=== PATIENT | female | born 1955 | race African-American/Black ===

== ENCOUNTER → 2017-02-05 | Outpatient (CLI) | payer OTHER ==
[~2017-02-05] MED LIST: ALBUTEROL1.25 MG/3 IH; CALCIUM 500 + D1 TA1 PO; FOLIC ACID1 MG PO; HCTZ 25MG TAB25 MG PO; KLOR-CON M2020 MEQ PO; LISINOPRIL10 MG PO; LORTAB 5/500 501 TAB PO; LORTAB 7.5/5001 TAB PO; MICRO-K 1010 MEQ PO; MULTIPLE VITAMI1 CAP PO; NEXIUM40 MG PO; NORCO 325 MG-51 TAB PO; PRAVACHOL 40MG40 MG PO; PREDNISONE20 MG PO; PRENATAL1 TA2 PO; PRENATAL1 TA6 PO; PRO AIR; PROAIR HFA0.09 MG/AC IH; PROBIOTIC FORMU1 CAP PO; PROVENTIL0.09 MG/A1 IH; REGLAN 10MG10 MG/TAB PO; TUSS PO; UNABLE; VERAPAMIL HCL240 M1 PO; WOMEN'S DAILY F1 TAB PO; ZITHROMAX Z PA250 MG PO; ZOCOR10 MG PO; ZOFRAN ODT4 MG PO
== END ==
LOC: MC.RAD 01-22 14:00
DX: Z12.31 Encounter for screening mammogram for malignant neoplasm of breast (principal); R92.1 Mammographic calcification found on diagnostic imaging of breast; N63 Unspecified lump in breast

== ENCOUNTER → 2017-02-09 | Outpatient (CLI) | payer OTHER | LOC: MC.RAD 08:20 | DX: N60.01 Solitary cyst of right breast (principal) ==

== ENCOUNTER → 2017-03-03 | Outpatient (CLI) | payer OTHER | LOC: COL.RAD 10:09 | DX: M17.11 Unilateral primary osteoarthritis, right knee (principal); M25.761 Osteophyte, right knee; S83.241A Other tear of medial meniscus, current injury, right knee, initial encounter; S83.281A Other tear of lateral meniscus, current injury, right knee, initial encounter ==

== ENCOUNTER → 2017-04-14 | Outpatient (CLI) | payer OTHER | LOC: COL.VAS 14:28 | DX: M79.661 Pain in right lower leg (principal); Z96.641 Presence of right artificial hip joint ==

== ENCOUNTER 2017-08-28 11:44 | Emergency (ER) | payer OTHER ==
[~2017-08-28] VITALS: Ht 175.3 cm; Wt 80.0 kg
[2017-08-28 11:50] VITALS: TEMP 98.5
[2017-08-28] MEDS ORDERED: ZITHROMAX 250M250 MG PO (13:17)
[2017-08-28] MEDS ORDERED: PREDNISONE20 MG PO (13:17)
[2017-08-28 13:33] VITALS: BP 135/89; PULSE 84
== END 2017-08-28 13:35 | disposition home or self-care (01) ==
LOC: COL.ER 11:44
DX: R06.02 Shortness of breath (principal)
CPT/HCPCS: J7512

== ENCOUNTER → 2018-04-19 | Outpatient (CLI) | payer MEDICARE, OTHER ==
[~2018-04-19] MED LIST changes: +ZITHROMAX 250M250 MG PO
== END ==
LOC: MC.RAD 03-15 09:20
DX: Z12.31 Encounter for screening mammogram for malignant neoplasm of breast (principal)

== ENCOUNTER → 2018-10-14 | Outpatient (CLI) | payer MEDICARE, OTHER | LOC: MC.RAD 09:25 | DX: N63.10 Unspecified lump in the right breast, unspecified quadrant (principal) | CPT/HCPCS: G0279 ==

== ENCOUNTER → 2019-08-21 | Outpatient (CLI) | payer MEDICARE, OTHER ==
[~2019-08-21] VITALS: Ht 175.3 cm; Wt 84.5 kg
[~2019-08-21] MED LIST changes: +B-121000 MCG PO; +LIPITOR20 MG PO; +NATURAL IRON65 MG PO; +NORVASC 5MG5 MG/TAB PO; +PRIL40 PO
[2019-08-21 10:18] VITALS: BP 121/78; PULSE 114
[2019-08-21 10:56] VITALS: BP 146/89; PULSE 99
== END ==
LOC: COL.RAD 09:30
DX: M47.27 Other spondylosis with radiculopathy, lumbosacral region (principal); M43.10 Spondylolisthesis, site unspecified
CPT/HCPCS: J3301

== ENCOUNTER → 2019-11-13 | Outpatient (CLI) | payer MEDICARE, OTHER ==
[~2019-11-13] VITALS: Ht 175.3 cm; Wt 83.7 kg
[~2019-11-13] MED LIST changes: +MOTRIN 400400 MG/TAB PO
[2019-11-13 12:35] VITALS: BP 170/87; PULSE 82
[2019-11-13 13:00] VITALS: BP 178/96; PULSE 90
== END ==
LOC: COL.RAD 11-03 12:00
DX: M47.817 Spondylosis without myelopathy or radiculopathy, lumbosacral region (principal)
CPT/HCPCS: J3301

== ENCOUNTER → 2020-07-29 | Outpatient (CLI) | payer MEDICARE, OTHER | LOC: COL.RAD 07:24 | DX: K21.9 Gastro-esophageal reflux disease without esophagitis (principal) ==

== ENCOUNTER → 2020-11-01 | Outpatient (CLI) | payer MEDICARE, OTHER | LOC: COL.RAD 10:50 | DX: J43.9 Emphysema, unspecified (principal); N28.1 Cyst of kidney, acquired; M47.816 Spondylosis without myelopathy or radiculopathy, lumbar region; R59.0 Localized enlarged lymph nodes; R63.4 Abnormal weight loss ==

== ENCOUNTER → 2021-06-03 | Outpatient (CLI) | payer MEDICARE, OTHER ==
[~2021-06-03] VITALS: Ht 175.3 cm; Wt 76.1 kg
[~2021-06-03] MED LIST changes: +CLARITIN 1010 MG/TAB PO; +MULTIPLE VITAMI1 TA1 PO
[2021-06-03 09:04] VITALS: BP 145/81; PULSE 91
--- NOTE | 2021-06-03 09:12 | NUR ---
pt here, consent signed.
[2021-06-03 10:07] VITALS: BP 153/87; PULSE 84
== END ==
LOC: COL.RAD 08:45
DX: M43.16 Spondylolisthesis, lumbar region (principal); M48.061 Spinal stenosis, lumbar region without neurogenic claudication
CPT/HCPCS: J3301

== ENCOUNTER → 2021-11-11 | Outpatient (CLI) | payer MEDICARE, OTHER | LOC: MHCPAIN 08:48 | DX: M47.817 Spondylosis without myelopathy or radiculopathy, lumbosacral region (principal); M53.3 Sacrococcygeal disorders, not elsewhere classified; M54.50 Low back pain, unspecified | CPT/HCPCS: G0463 ==

== ENCOUNTER → 2021-11-17 | Outpatient (CLI) | payer MEDICARE, OTHER | LOC: MHCPAIN 08:33 | DX: M53.3 Sacrococcygeal disorders, not elsewhere classified (principal); M47.817 Spondylosis without myelopathy or radiculopathy, lumbosacral region | CPT/HCPCS: G0260; J1040; Q9967 ==

== ENCOUNTER → 2021-12-11 | Outpatient (CLI) | payer MEDICARE, OTHER | LOC: MHCPAIN 09:50 | DX: M47.817 Spondylosis without myelopathy or radiculopathy, lumbosacral region (principal); M54.50 Low back pain, unspecified; M53.3 Sacrococcygeal disorders, not elsewhere classified ==

== ENCOUNTER → 2022-01-08 | Outpatient (CLI) | payer MEDICARE, OTHER | LOC: MHCPAIN 08:26 | DX: M47.817 Spondylosis without myelopathy or radiculopathy, lumbosacral region (principal); M54.50 Low back pain, unspecified; M53.3 Sacrococcygeal disorders, not elsewhere classified | CPT/HCPCS: G0463 ==

== ENCOUNTER → 2022-01-29 | Outpatient (CLI) | payer MEDICARE, OTHER | LOC: MHCPAIN 07:23 | DX: M47.817 Spondylosis without myelopathy or radiculopathy, lumbosacral region (principal); M54.50 Low back pain, unspecified; M53.3 Sacrococcygeal disorders, not elsewhere classified | CPT/HCPCS: G0463; J1100; J2250; J3010 ==

== ENCOUNTER → 2022-03-12 | Outpatient (CLI) | payer MEDICARE, OTHER | LOC: MC.RAD 08:38 | DX: Z12.31 Encounter for screening mammogram for malignant neoplasm of breast (principal) ==

== ENCOUNTER → 2022-03-25 | Outpatient (CLI) | payer MEDICARE, OTHER | LOC: MHCPAIN 07:38 | DX: M47.817 Spondylosis without myelopathy or radiculopathy, lumbosacral region (principal); M41.26 Other idiopathic scoliosis, lumbar region; M54.50 Low back pain, unspecified; M53.3 Sacrococcygeal disorders, not elsewhere classified | CPT/HCPCS: G0463 ==

== ENCOUNTER → 2022-12-08 | Outpatient (CLI) | payer MEDICARE, OTHER | LOC: MHCPAIN 10:59 | DX: M47.817 Spondylosis without myelopathy or radiculopathy, lumbosacral region (principal); M54.50 Low back pain, unspecified; M53.3 Sacrococcygeal disorders, not elsewhere classified; I10 Essential (primary) hypertension; E78.5 Hyperlipidemia, unspecified | CPT/HCPCS: G0463 ==

== ENCOUNTER 2024-05-19 10:44 | Emergency (ER) | payer MEDICARE ==
[~2024-05-19] VITALS: Ht 175.3 cm; Wt 72.7 kg
[2024-05-19 10:50] VITALS: TEMP 98.2
[2024-05-19] MEDS ORDERED: NS 1,000 ML IV ONE ×2 (11:45→12:00)
[2024-05-19 12:03] LABS: BASO # 0.1 K/mm3 (0.0-0.2); BASO % 0.7 % (0.0-2.0); EOS # 0.1 K/mm3 (0.0-0.7); EOS % 0.7 % (0.0-4.0); GRAN % 57.6 % (42.2-75.2); HEMATOCRIT 37.8 % (37.0-47.0); HEMOGLOBIN 12.6 g/dl (12.5-16.0); LYMPH # 2.3 K/mm3 (1.2-3.4); LYMPH % 34.1 % (20.0-51.0); MEAN CELL VOLUME 104 fl (80.0-100.0); MEAN CORPUSCULAR HEMOGLOBIN 35 pg (27-31); MEAN CORPUSCULAR HGB CONC 33 g/dl (33.0-37.0); MEAN PLATELET VOLUME 11.1 fl (7.4-10.4); MONO # 0.5 K/mm3 (0.1-0.6); MONO % 6.8 % (1.7-9.3); PLATELET COUNT 302 K/mm3 (130-400); RED BLOOD COUNT 3.62 M/mm3 (4.10-5.30); REDCELL DISTRIBUTION WIDTH-CV 12.1 % (11.5-14.5)
[2024-05-19 12:22] LABS: ALANINE AMINOTRANSFERASE 14 U/L (0-55); ALBUMIN 4.2 g/dL (3.4-4.8); ALKALINE PHOSPHATASE 87 U/L (40-150); ANION GAP 17 mmol/L (7-16); AST,SGOT 24 U/L (5-34); BILIRUBIN,TOTAL 0.4 mg/dL (0.2-1.2); BLOOD UREA NITROGEN 8 mg/dL (10-20); CALCIUM 9.9 mg/dL (8.4-10.2); CHLORIDE 103 mEq/L (98-107); CREATININE, serum 0.94 mg/dL (0.57-1.11); GLUCOSE 101 mg/dL (70-99); POTASSIUM 3.7 mEq/L (3.5-4.5); SODIUM 142 mEq/L (136-145); TOTAL PROTEIN 8.4 g/dl (6.2-8.1)
[2024-05-19 12:26] VITALS: BP 146/74
[2024-05-19 12:36] LABS: TROPONIN-I < 0.010 ng/mL (0.00-0.033)
[2024-05-19] MEDS ORDERED: NS 100 ML IV SCH (13:05)
[2024-05-19] MEDS ORDERED: Iohexol 300 - 100 ML VIAL IV ONE (13:06)
[2024-05-19] MEDS ORDERED: NORCO 325 MG-51 TAB PO (14:11)
[2024-05-19 14:30] VITALS: PULSE 77
== END 2024-05-19 14:30 | disposition home or self-care (01) ==
LOC: COL.ER 10:44
PROVIDERS: Personal Emergency Response Attendant
DX: R07.89 Other chest pain (principal)
CPT/HCPCS: J7030; Q9967

== ENCOUNTER → 2024-05-23 | Outpatient (CLI) | payer MEDICARE, OTHER | LOC: COL.RAD 12:34 | DX: K21.9 Gastro-esophageal reflux disease without esophagitis (principal) ==